=== PATIENT | male | born 1985 | race Caucasian/White ===

== ENCOUNTER 2018-03-26 20:53 | Emergency (ER) | payer BC ==
[~2018-03-26] VITALS: Ht 182.9 cm; Wt 79.4 kg
[2018-03-26] MEDS ORDERED: BACTRIM DS TAB1 EACH PO (21:30)
[2018-03-26] MEDS ORDERED: BACTROBAN NASAL1 GM (21:33)
== END 2018-03-26 21:56 | disposition home or self-care (01) ==
LOC: FSED 20:53
DX: L01.01 Non-bullous impetigo (principal); F17.220 Nicotine dependence, chewing tobacco, uncomplicated
CPT/HCPCS: 80053; 81003; 85025; 99283